=== PATIENT | male | born 1955 | race Caucasian/White ===

== ENCOUNTER 2017-08-08 10:53 | Day surgery (SDC) | payer BC ==
[2017-08-05 08:28] VITALS: BMI 30.4
[~2017-08-08 10:53] MED LIST: ALPRAZolam 0.25 MG TAB PO PRN; ALPRAZolam 0.5 MG TAB PO PRN; ASPIRIN 325 MG TAB PO STA; ATORVASTATIN 80 MG TAB PO STA; NITROGLYCERIN SL TABS 0.4 MG TAB SUBLINGUAL PRN; SODIUM CHLORIDE 0.9% 1,000 ML in EMPTY BAG 1 BAG IV ONE
[2017-08-08] MEDS ORDERED: ASPIRIN 81 MG ONE (11:05)
[2017-08-08 11:13] VITALS: TEMP 97.9
[2017-08-08 11:51] LABS: Aty Lym Flag Marked; CH 32.1; CHCM 33.6; HCT 40.3 % (39.0-53.0); HDW 2.33; HGB 13.6 gm/dL (13.0-17.5); MCH 32.2 pg (25.0-35.0); MCHC 33.6 g/dL (31.0-37.0); MCV 95.9 fL (80.0-100.0); MPO Flag Slight; Mean Platelet Volume 7.2; RDW 12.3 % (11.5-15.5); WBC 5.2 k/uL (3.8-10.6); WBC (Perox) 4.78
[2017-08-08 12:03] LABS: Anion Gap 7 mmol/L; Blood Urea Nitrogen 22 mg/dL (9-20); Calcium 9.2 mg/dL (8.4-10.2); Carbon Dioxide 24 mmol/L (22-30); Chloride 109 mmol/L (98-107); Glucose 109 mg/dL (74-99); Non-African American GFR(MDRD) >60 (>60 ml/min/1.73 sqM); Potassium 4.2 mmol/L (3.5-5.1); Sodium 140 mmol/L (137-145)
[2017-08-08 12:30] LABS: Add Differential Manual Differential
[2017-08-08 12:39] LABS: Manual Review Performed; Nucleated Red Blood Cells 0 /100 WBC (0-0); RBC Morphology Normal; Total Cells Counted 100
[2017-08-08] MEDS ORDERED: LIDOCAINE 2% INJ 20 MG/ML (20 ML MDV) ONE (13:12)
[2017-08-08] MEDS ORDERED: diphenhydrAMINE 50 MG/ML 1 ML VIAL ONE (13:13)
[2017-08-08] MEDS ORDERED: MIDAZOLAM 2 MG/2 ML VIAL ONE (13:13)
[2017-08-08] MEDS ORDERED: VERAPAMIL 2.5 MG/ML 2 ML AMP ONE (13:14)
[2017-08-08] MEDS ORDERED: HEPARIN SODIUM 1,000 UN/ML (10ML VL) ONE (13:14)
[2017-08-08] MEDS ORDERED: MIDAZOLAM 2 MG/2 ML VIAL IV ONE (13:24)
[2017-08-08] MEDS ORDERED: LIDOCAINE 2% INJ 20 MG/ML SQ ONE (13:25)
[2017-08-08] MEDS ORDERED: HYDROmorphone 2 MG/ML 1 ML SYRINGE ONE (13:38)
[2017-08-08] MEDS ORDERED: IOHEXOL 350 MG/ML 125ML BOTTLE INJ ONE (13:40)
[2017-08-08] MEDS ORDERED: HYDROmorphone 2 MG/ML 1 ML SYRINGE IV ONE (13:40)
[2017-08-08] MEDS ORDERED: RX INFO: IV CONTRAST WAS GIVEN 1 EACH MISC MISCELLANE PRN (13:47)
[2017-08-08] MEDS ORDERED: ATROPINE SULFATE 0.1 MG/ML 10ML SYRINGE IV ONE (13:49)
[2017-08-08] MEDS ORDERED: SODIUM CHLORIDE 0.9% 1,000 ML IV SCH (14:00)
--- NOTE | 2017-08-08 14:45 | CC ---
CARDIAC CATHETERIZATION REPORT DATE OF SERVICE: August 08, 2017 PERFORMING PHYSICIAN: Israel Patel M.D. director safety council. PROCEDURE PERFORMED: 1. Selective right and left coronary angiogram. 2. Left heart catheterization. INDICATIONS FOR PROCEDURE: This is a pleasant 62-year-old gentleman who is known to have coronary artery disease and prior stenting of the RCA, was experiencing intermittent episodes of chest discomfort. He was brought today to undergo a heart catheterization. APPROACH: Right common femoral artery. COMPLICATION: None. LEVEL OF SEDATION: Moderate with sedation length of 24 minutes. PROCEDURE DESCRIPTION: After obtaining informed consent, the patient was brought to the cardiac laborer yard. The right common femoral artery was cannulated using micropuncture technique and a micropuncture wire passed easily. Then I placed a 6-Namibian sheath in the right common femoral artery and then I did selective right and left coronary angiogram using JR4 and JL4 catheters. After that I did left heart catheterization using 6-Namibian pigtail catheter. The procedure was completed without complication. SELECTIVE CORONARY ANGIOGRAM: 1. The RCA is a large caliber vessel and is a dominant vessel with the proximal RCA has mild disease only. The mid and distal RCA are stented and the stents are patent. 2. The left main is angiographically normal. It bifurcates into left circumflex and left anterior descending artery. 3. The left circumflex is a large caliber vessel, it is a nondominant vessel. It is angiographically normal. 4. The left anterior descending artery: The proximal LAD is angiographically normal. The mid LAD is normal and gives rise into a large diagonal branch which seems to be angiographically normal. The LAD distally is normal. HEMODYNAMICS: The left ventricular end-diastolic pressure was 12 mmHg and no gradient was identified across the aortic valve. CONCLUSION: 1. Patent stents in the mid and distal RCA. 2. Mild disease involving the left circumflex. 3. Mild disease involving the LAD. POST PROCEDURE MANAGEMENT: Maximize medical treatment and follow up with the patient. MMODL / IJN: [id number] /
[2017-08-08 15:22] VITALS: RESP 18
[2017-08-08 16:18] VITALS: BP 114/81; PULSE 57
== END 2017-08-08 18:08 | disposition home or self-care (01) ==
LOC: CATHCVL 10:53 → 3OBS 13:44 → CATHCVL 13:44
PROVIDERS: ATTEND Internal Medicine Interventional Cardiology
DX: I25.110 Atherosclerotic heart disease of native coronary artery with unstable angina pectoris (principal); I10 Essential (primary) hypertension; E78.5 Hyperlipidemia, unspecified; Z79.1 Long term (current) use of non-steroidal anti-inflammatories (NSAID); Z79.82 Long term (current) use of aspirin; Z79.899 Other long term (current) drug therapy; Z87.891 Personal history of nicotine dependence; Z95.5 Presence of coronary angioplasty implant and graft
CPT/HCPCS: 93458; 80048; 85025; 99152; 99153; C1894 ×2; C1769 ×2; C1760; J2001; J2250; J1170; J0461; Q9967

== ENCOUNTER → 2017-10-03 | Outpatient (CLI) | payer BC ==
--- NOTE | 2017-10-03 09:59 | US ---
EXAMINATION TYPE: US duplex aorta DATE OF EXAM: 10/03/2017 COMPARISON: NONE CLINICAL HISTORY: 62-year-old male Z13.6 screening for AAA. Technique: Multiple sonographic images of the abdominal aorta are obtained. FINDINGS: Abdominal Aorta: Proximal: 2.1 x 2.0 cm . Proximal aorta slightly obscured by bowel gas. Mid: 2.1 x 1.7 cm Distal: 2.0 x 1.6 cm Common iliac arteries: Right: 1.0 cm Left: 1.0 cm IMPRESSION: No significant ectasia or aneurysm of the abdominal aorta.
== END | disposition home or self-care (01) ==
LOC: RADUSWWP 08:14
PROVIDERS: ATTEND Family Medicine
DX: Z13.6 Encounter for screening for cardiovascular disorders (principal)
CPT/HCPCS: 93979

== ENCOUNTER 2021-09-16 10:52 | Day surgery (SDC) | payer BC ==
[2021-09-11 12:23] VITALS: BMI 27.6
[2021-09-16 11:28] VITALS: TEMP 96.8
[2021-09-16] MEDS ORDERED: LACTATED RINGERS 1,000 ML IV ONE (11:29)
[2021-09-16] MEDS ORDERED: LACTATED RINGERS 1,000 ML IV SCH (11:29)
[2021-09-16] MEDS ORDERED: LIDOCAINE 1% (10MG/ML) FOR IV START INTRADERMA ONE (11:30)
[2021-09-16] MEDS ORDERED: PROPOFOL 10 MG/ML 20 ML VIAL IV ONE (12:44)
[2021-09-16] MEDS ORDERED: LIDOCAINE 1% INJ 10MG/ML (20 ML MDV) ONE (12:44)
--- NOTE | 2021-09-16 13:00 | P.PCN ---
Date of Procedure: 09/16/21 Procedure(s) Performed: BRIEF HISTORY: Patient is a 66-year-old pleasant male scheduled for an elective colonoscopy as a part of screening for colorectal neoplasia. His brother was diagnosed with colon cancer at age 60. PROCEDURE PERFORMED: Colonoscopy with biopsy. PREOPERATIVE DIAGNOSIS: Screening for colon cancer/family history of colon. IV sedation per Anesthesia. PROCEDURE: After informed consent was obtained, the patient, was brought into the endoscopy unit. IV sedation was administered by Anesthesia under continuous monitoring. Digital rectal examination was normal. Initially the Olympus CF-160 flexible video colonoscope was then inserted in the rectum, gradually advanced into the cecum without any difficulty. Careful examination was performed as the scope was gradually being withdrawn. Ileocecal valve and the appendiceal orifice were visualized and appeared normal. Prep was excellent. Mucosa of the cecum, appeared normal. In the ascending colon there was a 3-4 mm sessile polyp that was removed by cold biopsy. Rest of the ascending colon, transverse colon, descending colon, sigmoid colon, and rectum appeared normal. Scattered sigmoid diverticulosis seen. Retroflexion was performed in the rectum and no lesions were seen. The patient tolerated the procedure well. IMPRESSION: 3-4 mm sessile ascending colon polyp serous was biopsied Scattered sigmoid diverticulosis RECOMMENDATIONS: Findings of this examination were discussed with the patient as well as his family. He was advised to with the biopsy results and have a repeat screening colonoscopy every 5 years because of the family history of colon cancer.
[2021-09-16 13:23] VITALS: BP 112/78; PULSE 55; RESP 18
== END 2021-09-16 13:48 | disposition home or self-care (01) ==
LOC: ORWHC2ENDO 10:52
PROVIDERS: ATTEND Internal Medicine Gastroenterology
DX: Z12.11 Encounter for screening for malignant neoplasm of colon (principal); K57.90 Diverticulosis of intestine, part unspecified, without perforation or abscess without bleeding; D12.2 Benign neoplasm of ascending colon; I25.10 Atherosclerotic heart disease of native coronary artery without angina pectoris; E78.5 Hyperlipidemia, unspecified; I10 Essential (primary) hypertension; M19.90 Unspecified osteoarthritis, unspecified site; M06.9 Rheumatoid arthritis, unspecified; K21.9 Gastro-esophageal reflux disease without esophagitis; Z79.82 Long term (current) use of aspirin; Z79.899 Other long term (current) drug therapy
CPT/HCPCS: 88305; 45380; J2001; J2704

== ENCOUNTER → 2022-06-15 | Outpatient (CLI) | payer BC ==
--- NOTE | 2022-06-15 07:21 | US ---
EXAMINATION TYPE: US duplex aorta DATE OF EXAM: 06/15/2022 COMPARISON: US 10/03/2017 CLINICAL HISTORY: Z13.6 SCREENING FOR CARDIOVASCULAR DISORDERS. Screening for abdominal aortic aneury sm. Prior smoker. Hypertension, hyperlipidemia. Hx heart attack in 2012. Hx 3 cardiac stents. TECHNIQUE: Multiple sonographic images of the abdominal aorta are obtained. FINDINGS: EXAM MEASUREMENTS: Abdominal Aorta: Proximal: Obscured Mid: 2.8 x 2.7 cm. Distal: 2.1 x 2.2 cm. Bifurcation: Right: 1.5 x 1.5 cm. Left: 1.5 x 1.5 cm. SCHEDULING ADMINISTRATOR NOTES: Exam is limited due to overlying bowel gas.Plaque seen within the iliac arteries. Iliacs measure upper limits. 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 Nonvisualization of the proximal aorta sec ondary to overlying bowel gas.
== END | disposition home or self-care (01) ==
LOC: RADUSWWP 06:45
PROVIDERS: ATTEND Family Medicine
DX: Z13.6 Encounter for screening for cardiovascular disorders (principal)
CPT/HCPCS: 93979